=== PATIENT | male | born 1985 | race Caucasian/White ===

== ENCOUNTER 2025-10-01 21:42 | Emergency (ER) | payer MEDICAID, OTHER ==
[~2025-10-01] VITALS: Ht 175.3 cm; Wt 96.2 kg
[2025-10-01 22:22] VITALS: BP 136/82; TEMP 98.7; O2SAT 96
== END 2025-10-01 23:39 | disposition home or self-care (01) ==
LOC: ER 21:46
DX: S61.215A Laceration without foreign body of left ring finger without damage to nail, initial encounter (principal); W26.8XXA Contact with other sharp object(s), not elsewhere classified, initial encounter; Y93.89 Activity, other specified; Y92.89 Other specified places as the place of occurrence of the external cause; Y99.9 Unspecified external cause status
CPT/HCPCS: 12002; 99282; A6403